=== PATIENT | male | born 1985 | race African-American/Black ===

== ENCOUNTER 2020-11-17 14:53 | Emergency (ER) | payer OTHER ==
[~2020-11-17] VITALS: Ht 182.9 cm; Wt 117.0 kg
[2020-11-17] MEDS ORDERED: WELLTAB38 PO (15:12)
[2020-11-17] MEDS ORDERED: MORPHINE 4 MG/ML 1ML VIAL/SYRINGE (J2270) IV ONE (15:45)
[2020-11-17 16:06] LABS: BASO # 0.1 10^3/uL (0.0-0.2); BASO % 0.6 % (0.0-1.0); EOS # 0.6 10^3/uL (0.0-0.5); EOS % 6.2 % (0.0-3.0); HEMATOCRIT 48.1 % (42.0-52.0); HEMOGLOBIN 15.5 g/dl (13.5-17.5); LYMPH # 2.5 10^3/uL (1.5-5.0); MEAN CORPUSCULAR HEMOGLOBIN 31.4 pg (27.0-33.0); MEAN CORPUSCULAR HGB CONC 32.2 g/dl (32.0-36.5); MEAN CORPUSCULAR VOLUME 97.4 fl (80.0-96.0); MONO # 0.7 10^3/uL (0.0-0.8); NEUTROPHILS % 60.9 % (36.0-66.0); PLATELET COUNT, AUTOMATED 290 10^3/uL (150-450); RED BLOOD COUNT 4.94 10^6/uL (4.30-6.10); WHITE BLOOD COUNT 9.9 10^3/uL (4.0-10.0)
--- NOTE | 2020-11-17 16:15 | REP ---
INDICATION: right sided chest pain COMPARISON: None. TECHNIQUE: PA and lateral. FINDINGS: The mediastinum and cardiac silhouette are normal. The lung hernandez are clear and without acute consolidation, effusion, or pneumothorax. The skeletal structures are intact and normal. IMPRESSION: No acute cardiopulmonary process. <Electronically signed by Riley Padilla > 11/17/20 0995
[2020-11-17] MEDS ORDERED: ONDANSETRON 4MG/2ML VIAL IV ONE (16:30)
[2020-11-17 16:31] LABS: ALBUMIN 4.3 GM/DL (3.2-5.2); ALT/SGPT 52 U/L (12-78); BILIRUBIN,DIRECT < 0.1 MG/DL (0.0-0.2); BILIRUBIN,TOTAL 0.4 MG/DL (0.2-1.0); CK-MB VALUE MASS 1.6 NG/ML (<3.6); CPK CREATINE PHOSPHOKINASE 525 U/L (39-308); LIPASE 206 U/L (73-393); TOTAL PROTEIN 7.5 GM/DL (6.4-8.2); TROPONIN I < 0.02 NG/ML (< 0.10)
[2020-11-17] MEDS ORDERED: ONDANSETRON 4MG/2ML VIAL As Ordered ONE (16:31)
[2020-11-17] MEDS ORDERED: ISOVUE-370 76% 100ML VIAL As Ordered ONE (16:57)
--- NOTE | 2020-11-17 17:46 | REPVR ---
PROCEDURE INFORMATION: Exam: CT Angiography Chest With Contrast Exam date and time: 11/17/2020 5:01 PM Age: 35 years old Clinical indication: Pain; Other: Back; Additional info: Pain from back into chest RO disecction TECHNIQUE: Imaging protocol: Computed tomographic angiography of the chest with intravenous contrast. 3D rendering (Not supervised by radiologist): MIP and/or 3D reconstructed images were created by the technologist. Radiation optimization: All CT scans at this facility use at least one of these dose optimization techniques: automated exposure control; mA and/or kV adjustment per patient size (includes targeted exams where dose is matched to clinical indication); or iterative reconstruction. Contrast material: ISOVUE 370; Contrast volume: 100 ml; Contrast route: INTRAVENOUS (IV); COMPARISON: CR Chest, 2 view PA, Lat 11/17/2020 3:49 PM FINDINGS: Pulmonary arteries: Normal. No pulmonary emboli. Aorta: Cardiac motion induced artifact limits evaluation of the proximal thoracic aorta. No mediastinal hematoma, definite aortic dissection or rupture identified. Consider gated CT angiogram of the chest as needed. Lungs: There are numerous tiny pulmonary nodules measuring under 3 mm scattered throughout both lungs. There is a pleural base nodule measuring 8 mm within the left costophrenic angle on axial image 80 and a 6 mm nodule within the left costophrenic angle on axial image 78. There is a 12 mm nodule in the right costophrenic angle on axial image 74. There is a focal opacity measuring 15 mm within the lateral segment of the right middle lobe on axial image numeral 60. Pleural space: No pleural effusion or pneumothorax. Heart: Unremarkable. No cardiomegaly. No pericardial effusion. Mediastinal space: Soft tissue density within the anterior mediastinum consistent with residual thymic tissue. Lymph nodes: Unremarkable. No enlarged lymph nodes. Bones/joints: Unremarkable. No acute fracture. Soft tissues: Unremarkable. IMPRESSION: 1. Cardiac motion induced artifact limits evaluation of the proximal thoracic aorta. No mediastinal hematoma, definite aortic dissection or rupture identified. Consider gated CT angiogram of the chest as needed. 2. Bilateral pulmonary nodules measuring up to 8 mm on the left and 12 mm on the right. Follow-up CT scan is recommended. For patients at low risk (minimal or absent history of smoking and of other known risk factors), recommend CT Chest at 3-6 months, then consider CT Chest at 18-24 months. For patients at high risk (history of smoking or of other known risk factors), recommend CT Chest at 3-6 months, then CT Chest at 18-24 months. (Reference: Morales) REFERENCES: Morales Solis, et al. Guidelines for Management of Incidental Pulmonary Nodules Detected on CT Images: From the Fleischner Society 2017. Radiology. 2017;284(1):228-243. Electronically signed by: Wilfredo Griggs On 11/17/2020 17:46:17 PM
--- NOTE | 2020-11-17 17:48 | REPVR ---
PROCEDURE INFORMATION: Exam: CT Angiography Abdomen With Contrast Exam date and time: 11/17/2020 5:01 PM Age: 35 years old Clinical indication: Pain; Other: Back; Additional info: Pain from back into chest RO disecction TECHNIQUE: Imaging protocol: Computed tomographic angiography images of the abdomen with intravenous contrast material. 3D rendering (Not supervised by radiologist): MIP and/or 3D reconstructed images were created by the technologist. Radiation optimization: All CT scans at this facility use at least one of these dose optimization techniques: automated exposure control; mA and/or kV adjustment per patient size (includes targeted exams where dose is matched to clinical indication); or iterative reconstruction. Contrast material: ISOVUE 370; Contrast volume: 100 ml; Contrast route: INTRAVENOUS (IV); COMPARISON: No relevant prior studies available. FINDINGS: Aorta: No aortic aneurysm. No aortic dissection. Celiac trunk and mesenteric arteries: No occlusion or significant stenosis. Renal arteries: No occlusion or significant stenosis. Liver: Normal. No mass. Gallbladder and bile ducts: Normal. No calcified stones. No ductal dilation. Pancreas: Normal. No ductal dilation. Spleen: Normal. No splenomegaly. Adrenals: Normal. No mass. Kidneys and ureters: Normal. No hydronephrosis. Stomach and bowel: Unremarkable. No obstruction. No mucosal thickening. Lymph nodes: Unremarkable. No enlarged lymph nodes. Intraperitoneal space: Unremarkable. No free air. No significant fluid collection. Bones/joints: Unremarkable. No acute fracture. No dislocation. Soft tissues: Unremarkable. IMPRESSION: Unremarkable CTA abdomen. Electronically signed by: Wilfredo Griggs On 11/17/2020 17:48:36 PM
[2020-11-17] MEDS ORDERED: KETO10TAB PO (18:07)
[2020-11-17] MEDS ORDERED: CYCL-707 PO (18:07)
[2020-11-17 18:31] VITALS: BP 134/82
--- NOTE | 2020-11-17 21:47 | ECGEPIP ---
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
--- NOTE | 2020-11-18 08:36 | ED PDOC ---
Post-Departure Follow-Up dr mckenzie faxed formal report of cta chest for fu Rosa Cárdenas MD Nov 18, 2020 08:36
== END 2020-11-17 18:50 | disposition home or self-care (01) ==
LOC: M ED 14:53
DX: R91.8 Other nonspecific abnormal finding of lung field (principal); R94.4 Abnormal results of kidney function studies; J45.909 Unspecified asthma, uncomplicated; F41.9 Anxiety disorder, unspecified; Z87.891 Personal history of nicotine dependence; Z79.899 Other long term (current) drug therapy
CPT/HCPCS: 71046; 71275; 74175; 80047; 80076; 82550; 82553; 83690; 84484; 85025; 85379; 93005; 93041; 94760; 96374; 96375; 99284; J2270; J2405; Q9967